=== PATIENT | female | born 1945 | race Caucasian/White ===

== ENCOUNTER 2024-06-08 23:12 | Observation (INO) | payer MEDICARE, MEDICAID, SELFPAY ==
--- NOTE | ~2024-06-08 | CT_ITS ---
CT head without contrast Indication: Altered mental status Technique: Serial scans were obtained through the brain without the administration of contrast. Dose reduction technique was used on this scan by utilizing automated exposure control and iterative recon struction technique. The dose-length product (DLP) was 529.67 mGy-cm. Findings: There is no evidence of intracranial hemorrhage, mass lesion, or acute infarct. The ventri cles and subarachnoid spaces are dilated, consistent with mild to moderate atrophy. Low attenuation regions are seen within the periventricular white matter bilaterally, likely representing changes fro m chronic microvascular ischemic disease. There is no evidence of edema, mass effect or midline shif t. The visualized paranasal sinuses and mastoid air cells are clear. Impression: No intracranial hemorrhage, mass, or acute infarct. Atrophy and chronic white matter changes, as above. Reviewed, dictated and finalized at location M. Impression: No intracranial hemorrhage, mass, or acute infarct. Atrophy and chronic white matter changes, as above.
--- NOTE | ~2024-06-08 | XR_ITS ---
XR chest 1V portable Ordering provider: Orlin Leiva MD History: 78 years Female with . Chest pain SOB . Comparison: None. FINDINGS: MEDIASTINUM: The cardiac silhouette is not enlarged. LUNGS: No effusions or pneumothorax. Calcified granuloma in the right midzone. Prominent markings in the left lower lobe laterally. OTHER: No free air under the diaphragm. Degenerative spine. IMPRESSION: Prominent markings in the left lower lobe laterally which may indicate early pneumonia. Follow-up adv ised. Reviewed, dictated and finalized at location A. IMPRESSION: Prominent markings in the left lower lobe laterally which may indicate early pn eumonia. Follow-up advised.
[2024-06-08 23:09] VITALS: BP 124/88; PULSE 94; RESP 16; O2SAT 95
[2024-06-08 23:19] VITALS: BP 112/66; BP 112/80; PULSE 64; PULSE 74; RESP 18; TEMP 36.4; O2SAT 98; O2SAT 99
--- NOTE | 2024-06-08 23:19 | ECG_ITS ---
Test Date: 2024-06-08 23:20:37 Measurements Intervals [place] Rate: 69 P: 0 CO: 0 QRS: 42 QRSD: 87 T: 21 QT: 387 QTc: 417 Interpretive Statements ATRIAL FIBRILLATION WITH ABERRANT CONDUCTION OR VENTRICULAR PREMATURE COMPLEXES POSSIBLE ANTERIOR MYOCARDIAL INFARCTION , OF INDETERMINATE AGE [30 ms Q WAVE IN V3/V4, OR R < 0.2 mV IN V4] ABNORMAL ECG No previous ECG available for comparison Electronically Signed On 06-09-2024 14:55:53 CDT by Jesse Perez M.D.
[2024-06-08] MEDS: OLANZapine 10 MG, WATER, STERILE FOR INJECTION 2.1 ML IM (23:25)
[2024-06-08 23:34] VITALS: BP 124/88; PULSE 76; RESP 18; TEMP 36.5; O2SAT 99
[2024-06-08 23:35] LABS: Basophils Percent Auto 0.5 % (0.2-1.2); Eosinophils Absolute Auto 0.1 K/mm3 (0-0.3); Eosinophils Percent Auto 1.2 % (0-4.4); Hemoglobin 11.3 g/dL (12.0-15.0); Immature Granulocyte Absolute 0.02 K/mm3 (0.00-0.031); Immature Granulocyte Percent A 0.2 % (0-0.5); Lymphocytes Absolute Auto 2.87 K/mm3 (0.9-3.2); Lymphocytes Percent Auto 35.3 % (18.3-44.2); Mean Corpuscular HGB Conc 33.2 g/dl (32-36); Mean Corpuscular Hemoglobin 33.2 pg (26-34); Mean Platelet Volume 9.7 fl (7.4-10.4); Monocytes Absolute Auto 0.8 K/mm3 (0.1-0.6); Monocytes Percent Auto 9.8 % (2.6-8.5); Neutrophils Absolute Auto 4.3 K/mm3 (1.3-6.7); Platelet Count Result 169 k/mm3 (150-375); White Blood Count 8.1 K/mm3 (4.5-10.0)
[2024-06-08 23:46] VITALS: BP 130/68; PULSE 65; RESP 16; TEMP 36.6; O2SAT 100
[2024-06-08 23:47] LABS: Alanine Aminotransferase 17 U/L (6-35); Albumin Level 3.9 g/dL (3.5-5.1); Alkaline Phosphatase 70 U/L (38-126); Anion Gap 8 mmol/L (4-12); Aspartate Amino Transferase 43 U/L (14-36); Bilirubin,Total 1.4 mg/dL (0.2-1.3); Blood Urea Nitrogen 15 mg/dL (7-17); Calcium 8.6 mg/dL (8.4-10.2); Carbon Dioxide 30 mmol/L (22-30); Chloride 100 mmol/L (98-107); Estimated CRCL calculation 60 ml/min; Estimated Glomerular Filt Rate > 60; Glucose 93 mg/dL (65-110); Lactic Acid Reflex 1.1 mmol/L (0.7-2.0); Potassium 3.9 mmol/L (3.4-5.0); Sodium 138 mmol/L (137-145)
[2024-06-08 23:53] LABS: Acetaminophen < 10 ug/mL (10-30); Ammonia < 9 umol/L (9-30); Ethanol < 10 mg/dL (<10); Salicylate < 1.0 mg/dL (2-20)
--- NOTE | 2024-06-08 23:54 | ED.CHESTPAIN ---
HPI - Chest Pain General Chief Complaint: Chest Pain Stated Complaint: halucinations, sob, chest pain Source: EMS Mode of arrival: EMS Limitations: dementia History of Present Illness HPI narrative: HPI limited by patient's baseline altered mental status This is a 78-year-old female, with history of dementia with baseline A&O x1, [facility] with complaints of chest pain, hallucinations and delirium. EMS reports that staff at her [facility] states that she has not slept for the past 3 days and has been wandering around. She reportedly had a new nurse this evening that noted complaints of shortness of breath and chest pain. EMS notes with any intervention or touch, the patient complained of pain. Fingerstick glucose 80. Vital signs within normal limits and route. Related Data Home Medications Medication Instructions Recorded Confirmed No Home Medications 06/07/24 06/07/24 Allergies Allergy/AdvReac Type Severity Reaction Status Date / Time Iodinated Contrast Media Allergy Other Verified 06/08/24 23:28 levofloxacin Allergy Other Verified 06/08/24 23:28 metronidazole Allergy Other Verified 06/08/24 23:28 Review of Systems Review of Systems: ROS unobtainable: Yes unobtainable due to mental status PMFSH Past Medical History Medical History (Updated 06/09/24 @ 03:15 by Orlin Leiva MD) Atrial fibrillation Dementia Generalized anxiety disorder Hypertension Hypocalcemia Unspecified psychosis Surgical History Surgical History (Updated 06/09/24 @ 00:01 by Orlin Leiva MD) No significant past surgical history Social History Social History Smoking status: Never smoker Alcohol intake: never Substance use: never Exam Narrative: GENERAL: Well-developed, well-nourished, mildly agitated with placement of lines and leads, though calms when left alone HEAD: Normocephalic, atraumatic. EYES: PERRLA and EOMI. ENT: Nares clear, no rhinorrhea or epistaxis. Mucous membranes moist. Oropharynx without tonsillar hypertrophy exudate or other lesions. CHEST: Clear to auscultation. No respiratory distress. No wheezes rales or rhonchi HEART: Regular rate and rhythm. No murmur heard. Normal peripheral pulses. ABDOMEN: Soft, nontender, nondistended, normal active bowel sounds. EXTREMITIES: Normal range of motion. No edema. SKIN: Warm, dry, no rash. NEURO: Alert and oriented x1. Follows some commands. Moving all 4 extremities spontaneously Course Course Emergency Course: 02:25 - STAT Rad reading of CT head demonstrates no hemorrhage, hydrocephalus, mass effect or herniation. Chest x-ray shows changes concerning for early pneumonia, CBC demonstrates mild anemia with hemoglobin of 11.3 but is otherwise unremarkable. Chemistries demonstrate total bilirubin elevation of 1.4 an AST elevation of 43 but is otherwise unremarkable. Initial troponin negative PE urinalysis not concerning for UTI. Urine drug screen pending. Salicylates, acetaminophen and alcohol levels negative. The changes concerning for pneumonia may explain the patient's chest pain and shortness of breath. I suspect her lack of sleep is contributing to her altered mental status. 03:24 - I discussed the patient with hospitalist, Dr. Shoemaker. Who accepts admission. Vital Signs Vital signs: Vital Signs Pulse Rate 94 06/08/24 23:09 Respiratory Rate 16 06/08/24 23:09 Blood Pressure 124/88 06/08/24 23:09 Pulse Oximetry 95 06/08/24 23:09 Oxygen Delivery Room Air 06/08/24 23:09 Temperature 97.4 F L 06/09/24 00:31 Pulse Rate 72 06/09/24 00:31 Respiratory Rate 14 06/09/24 00:31 Blood Pressure 122/84 06/09/24 00:31 Pulse Oximetry 100 06/09/24 00:31 Oxygen Delivery Room Air 06/08/24 23:09 MDM - Chest Pain MDM Narrative Medical decision making narrative: Plan: Labs, imaging, chemical sedation, EKG, troponin, reassess
[2024-06-08 23:58] VITALS: BP 128/60; PULSE 71; RESP 16; TEMP 36.4; O2SAT 99
[2024-06-09] VITALS (10 sets, daily range): BP systolic 106–156; BP diastolic 52–84; PULSE 59–79; RESP 14–20; TEMP 36.1–36.4; O2SAT 98–100; BMI 31.0
[2024-06-09] LABS: Troponin I < 0.012 ng/mL (0.000-0.034)
[2024-06-09] MEDS: QUEtiapine FUMARATE 12.5 MG TABLET PO (00:45)
--- NOTE | 2024-06-09 00:59 | PC.NURSE ---
Patient refusing Seroquel. EDP aware; different medication ordered for agitation
[2024-06-09] MEDS: LORazepam INJ (*CRX) 2 MG/ML VIAL 1 MG IM (01:01)
[2024-06-09] MEDS: DOXYCYCLINE 100 MG/NS 100 ML 100 MG/100 ML BAG IVPB (02:00)
[2024-06-09 02:23] LABS: Add Urine Microscopic? NO; Appearance Urine Clear (Clear); Bilirubin Urine Negative (Negative); Blood Urine Negative (Negative); Color Urine Yellow (Yellow); Glucose Urine UA Negative (Negative); Ketones Urine Negative (Negative); Leukocyte Esterase Ur Negative LEU/UL (Negative); Nitrate Urine Negative (Negative); Protein Urine Negative (Negative); Specific Grav Ur 1.007 (1.001-1.035); pH Urine 6.5 (5.0-9.0)
[2024-06-09 02:38] LABS: Amphetamine Screen Urine Negative (Negative); Barbiturate Screen Urine Negative (Negative); Benzodiazepines Screen Urine Negative (Negative); Cannabinoid Screen Urine Negative (Negative); Cocaine Screen Urine Negative (Negative); Methadone Screen Urine Negative (Negative); Opiate Screen Urine Negative (Negative); Phencyclidine Screen Urine Negative (Negative)
[2024-06-09 03:05] LABS: Troponin I < 0.012 ng/mL (0.000-0.034)
--- NOTE | 2024-06-09 06:20 | ADMGEN ---
This patient, Brooke Ford, was admitted to [facility] Surg Room 333-01. Patient/family oriented to hospital policies and general routines including ID bracelet, bed and alarms, visiting hours, pain management, procedures, bathroom and other care routines, personal items, smoking policy, room service/diet, and visiting hours. Information on how to activate the Rapid Response Team has been discussed. Patient/Family are encouraged to report perceived risks to care and to ask questions if they do not understand what they are told or what they should do.
--- NOTE | 2024-06-09 06:26 | PC.NURSE ---
Patient admitted to unit @0611. She will not answer admission questions and agitated.
[2024-06-09 11:18] LABS: Hematocrit 38.2 % (37.0-47.0); Hemoglobin 12.6 g/dL (12.0-15.0); Mean Corpuscular Hemoglobin 33.4 pg (26-34); Mean Corpuscular Volume 101.3 fl (80-100); Mean Platelet Volume 9.5 fl (7.4-10.4); Platelet Count Result 182 k/mm3 (150-375); Red Blood Count 3.77 M/mm3 (4.2-5.4); Red Cell Distribution Width 14.1 % (11.5-14.5); White Blood Count 7.3 K/mm3 (4.5-10.0)
--- NOTE | 2024-06-09 13:10 | PM.IMHP ---
H&P: HPI History of Present Illness Date/Time: 06/09/24 10:10 Chief Complaint: Chest discomfort Narrative: Patient has a history of dementia and is very confused, only oriented to self and unable to provide any information regarding her presentation. Patient was brought in to the ER from the [place] that she resides with reports of chest discomfort. From ER report, the patient was complaining of shortness of breath and chest discomfort at the [facility]. Patient also complained of pain to the EMS, with any touch. During my exam patient is confused, only oriented to self, with reponses unrelated to questions asked. Patient has been ambulating on the hallway since this AM per nursing staff. Significant ER Labs: WBC 6.7, H/H 12.6/38.2, Plat 182, Troponin 0.012, Toxicology screen negative, Covid negative, chemistry unremarkable. Review of Systems Review of Systems: All systems reviewed & are unremarkable except as noted in HPI and below PMFSH Past Medical History Medical History (Updated 06/09/24 @ 13:57 by Wendy Moraes NP) Atrial fibrillation Dementia Generalized anxiety disorder Hypertension Hypocalcemia Unspecified psychosis Surgical History Surgical History No significant past surgical history Social History Social History Smoking status: Unknown if ever smoked Second hand tobacco smoke exposure: No Alcohol intake: never Substance use: never Spiritual care concerns: No Meds Home Medications and Allergies Home Medications Medication Instructions Recorded Confirmed Type acetaminophen 500 mg tablet 500 mg PO BID 06/09/24 06/09/24 History apixaban 5 mg tablet (Eliquis) 5 mg PO BID 06/09/24 06/09/24 History aripiprazole 5 mg tablet 5 mg PO DAILY 06/09/24 06/09/24 History divalproex 250 mg tablet,delayed 250 mg PO BID 06/09/24 06/09/24 History release famotidine 20 mg tablet 20 mg PO DAILY 06/09/24 06/09/24 History lisinopril 5 mg tablet 5 mg PO DAILY 06/09/24 06/09/24 History metoprolol tartrate 25 mg tablet 25 mg PO BID 06/09/24 06/09/24 History quetiapine 25 mg tablet 25 mg PO BID 06/09/24 06/09/24 History Allergies Allergy/AdvReac Type Severity Reaction Status Date / Time Iodinated Contrast Media Allergy Other Verified 06/08/24 23:28 levofloxacin Allergy Other Verified 06/08/24 23:28 metronidazole Allergy Other Verified 06/08/24 23:28 Vital Signs Vital Signs - 24 hr 06/08/24 23:09 06/08/24 23:19 06/08/24 23:19 Temperature 97.6 F Pulse Rate 94 74 64 Respiratory Rate 16 18 18 Blood Pressure 124/88 112/80 112/66 Pulse Oximetry 95 98 99 Oxygen Delivery Room Air 06/09/24 00:11 06/08/24 23:34 06/08/24 23:46 Temperature 97.6 F 97.7 F 97.8 F Pulse Rate 71 76 65 Respiratory Rate 16 18 16 Blood Pressure 114/78 124/88 130/68 Pulse Oximetry 99 99 100 Oxygen Delivery 06/08/24 23:58 06/09/24 00:31 06/09/24 03:28 Temperature 97.6 F 97.4 F L Pulse Rate 71 72 62 Respiratory Rate 16 14 16 Blood Pressure 128/60 122/84 108/52 L Pulse Oximetry 99 100 98 Oxygen Delivery 06/09/24 01:16 06/09/24 02:15 06/09/24 02:16 Temperature 97.6 F 97.4 F L 97.4 F L Pulse Rate 62 63 59 L Respiratory Rate 16 16 16 Blood Pressure 128/62 106/56 L 124/64 Pulse Oximetry 99 98 98 Oxygen Delivery 06/09/24 03:16 06/09/24 04:16 06/09/24 05:27 Temperature 97.4 F L 97.6 F Pulse Rate 65 61 59 L Respiratory Rate 14 16 16 Blood Pressure 108/52 L 136/52 L 134/52 L Pulse Oximetry 99 99 98 Oxygen Delivery 06/09/24 06:15 Temperature 97.0 F L Pulse Rate 79 Respiratory Rate 20 Blood Pressure 156/79 H Pulse Oximetry 100 Oxygen Delivery Exam Narrative: General: Pleasantly confused, only oriented to self. HEENT: Atraumatic, PERRL, EOMI, moist mucus membranes. NECK: Supple. Pulmonary: Lungs clear bilaterally. Cardiovascular: RRR, S1S2, no edema. Gastrointestinal: Soft,
[2024-06-09 13:26] LABS: SARS-CoV-2 RNA PCR Negative (Negative)
--- NOTE | 2024-06-09 14:02 | PM.DS ---
DS: Admitting Diagnosis Discharge Date 06/09/2024 Admitting Diagnosis Chest discomfort. DS: Discharge Diagnosis Discharge Diagnosis (1) Pneumonia: Qualifiers: Laterality: left Lung location: lower lobe of lung Pneumonia type: due to unspecified organism Qualified Code(s): J18.9 - Pneumonia, unspecified organism Code(s): J18.9 - Pneumonia, unspecified organism Status: Acute Assessment and Plan: - CXR suggestive of early PNA. - WBC's wnl. - Patient started on Ceftriaxone and doxycycline in ER and converted to Augmentin prior to discharge. - No coughs or SOB episodes inpatient. - Patient medically stable for discharge to [place]. (2) Altered mental status: Qualifiers: Altered mental status type: delirium Qualified Code(s): R41.0 - Disorientation, unspecified Code(s): R41.82 - Altered mental status, unspecified Status: Acute Assessment and Plan: - Possibly related to dementia and worsened with possible infection. - UA negative. - Continue safety monitoring and assist with care. (3) Atrial fibrillation: Code(s): I48.91 - Unspecified atrial fibrillation Status: Chronic Assessment and Plan: - Stable inpatient. - Continue Apixaban and Metoprolol. (4) Essential hypertension: Code(s): I10 - Essential (primary) hypertension Status: Acute Assessment and Plan: - Stable. - Continue Lisinopril and metoprolol. (5) Generalized anxiety disorder: Code(s): F41.1 - Generalized anxiety disorder Status: Acute Assessment and Plan: - Continue Continue quetiapine and aripiprazole. Plan Code Status: DNR. DVT PPx: Apixaban. Diet: Heart Healthy. DS: Summary Hospital Course Reason for hospitalization: Chest discomfort. Hospital Course: Patient was admitted with concerns for chest discomfort. Patient had fairly unremarkable labs, including normal WBC and fairly normal chemistry. Her UA was also negative with Covid pending prior to discharge but patient with no symptoms, with her vital signs staying wnl during her hospitalization. Patient's CXR was suggestive of early pneumonia and she was treated with Ceftriaxone and Doxycycline that was changed to Augmentin prior to her discharge. Her CT head was negative for acute, only showing atrophy and chronic white matter changes. Her toxicology screen was also negative. Patient appears to be back to her baseline with baseline confusion related to her dementia. Patient is medically stable for discharge back to her NH. Status at Discharge Functional status at discharge: uses cane/walker Overall status at discharge: patient is progressing back to baseline Time Spent with Patient Time attestation: Total time spent providing and/or coordinating discharge services: Time spent: Greater than 30 minutes Exam Narrative: General: Pleasantly confused, only oriented to self. HEENT: Atraumatic, PERRL, EOMI, moist mucus membranes. NECK: Supple. Pulmonary: Lungs clear bilaterally. Cardiovascular: RRR, S1S2, no edema. Gastrointestinal: Soft, non-tender, +ve bowel sounds all quadrants. Skin: Warm and dry, Intact with no lesions noted on exam Extremities: No cyanosis, clubbing or edema. Radial and pedal pulses 2+. Neurological: Alert and oriented X1 (self), Cranial nerves II-XII grossly intact. No focal deficits. Psychiatric: Pleasantly confused. DS: Data Data Completed and Pending Labs on day of discharge: Labs from last 24 hours 06/09/24 06/09/24 06/09/24 12:45 11:13 02:26 WBC 7.3 RBC 3.77 L Hgb 12.6 Hct 38.2 MCV 101.3 H MCH 33.4 MCHC 33.0 RDW 14.1 Plt Count 182 MPV 9.5 Immature Gran % (Auto) Neut % (Auto) Lymph % (Auto) [place] % (Auto) Eos % (Auto) Baso % (Auto) Lymph # (Auto) [place] # (Auto) Eos # (Auto) Baso # (Auto) Abs Immat Gran (auto) Absolute Neuts (auto) Absolute Nucleated RBC Nucleated RBC %
[2024-06-09 15:15] LABS: Procalcitonin 0.1 ng/mL
== END 2024-06-09 16:30 ==
LOC: ANHED 06-09 03:15 → ANH3MEDSUR 06-09 06:47
PROVIDERS: Nurse Practitioner Adult Health; Admitting Provider Internal Medicine; Emergency Provider Preventive Medicine Aerospace Medicine; Visit Provider Internal Medicine
DX: J18.9 Pneumonia, unspecified organism (principal); R41.0 Disorientation, unspecified; R07.9 Chest pain, unspecified; I48.91 Unspecified atrial fibrillation; F03.90 Unspecified dementia, unspecified severity, without behavioral disturbance, psychotic disturbance, mood disturbance, and anxiety; I10 Essential (primary) hypertension; F41.1 Generalized anxiety disorder; Z79.01 Long term (current) use of anticoagulants; Z66 Do not resuscitate; Z20.822 Contact with and (suspected) exposure to COVID-19
CPT/HCPCS: 36415; 70450; 71045; 80053; 80307; 81003; 82140; 83605; 84145; 84443; 84484; 85025; 85027; 87635; 93005; 96365; 96367; 96372; 99285; A9270; G0378; G0379; J0696; J2060; J2359

== ENCOUNTER 2025-03-20 13:46 | Observation (INO) | payer MEDICARE, SELFPAY ==
[2025-03-20] VITALS (10 sets, daily range): BP systolic 90–152; BP diastolic 55–72; PULSE 73–86; RESP 12–21; TEMP 36.2–36.3; O2SAT 93–97; BMI 27.8
--- NOTE | ~2025-03-20 | CT_ITS ---
EXAMINATION: CT abdomen pelvis wo con DATE: 03/20/2025 18:22 INDICATION: Nausea vomiting diarrhea TECHNIQUE: Computed tomography (CT) of the abdomen and pelvis was performed without intravenous contr ast. Automated exposure control and iterative reconstruction technique were employed. The dose-length product was 452.81 mGy-cm. COMPARISON: None. FINDINGS: Exam limited by beam hardening from arm down positioning and motion artifact. Lower thorax: Aortic, mitral, and coronary artery calcifications. Cardiomegaly. Descending thoracic a ortic ectasia. Liver: Normal. Biliary/Gallbladder: Gallbladder is absent. No inflammatory change. Distended common bile duct, proba lori secondary to cholecystectomy. Pancreas: Moderate atrophy. Spleen: Normal. Adrenals:No mass. Kidneys: No suspicious mass, obstructing stone, or hydronephrosis. Bilateral simple renal cysts. GI tract: No small or large bowel dilation. Appendix not confidently visualized. Mesentery/Peritoneum: No ascites, mass, or free air. Retroperitoneum: No mass. Atherosclerotic calcifications of intra-abdominal arterial vessels. 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 Uterus and bilateral ovaries not confidently visualized. Soft Tissues: Soft tissues and body wall unremarkable. Bones: No acute osseous finding. IMPRESSION: Bladder wall thickening, as can be seen with cystitis. Correlate with urinalysis. Reviewed, dictated and finalized at location K. IMPRESSION: Bladder wall thickening, as can be seen with cystitis. Correlate with urinalysi s.
[2025-03-20 14:42] LABS: Basophils Absolute Auto 0.1 K/mm3 (0.0-0.1); Basophils Percent Auto 0.5 % (0.2-1.2); Eosinophils Percent Auto 0.1 % (0-4.4); Hematocrit 38.8 % (37.0-47.0); Hemoglobin 12.7 g/dL (12.0-15.0); Immature Granulocyte Absolute 0.09 K/mm3 (0.00-0.031); Immature Granulocyte Percent A 0.5 % (0-0.5); Lymphocytes Absolute Auto 0.75 K/mm3 (0.9-3.2); Lymphocytes Percent Auto 4.2 % (18.3-44.2); Mean Corpuscular HGB Conc 32.7 g/dl (32-36); Mean Corpuscular Hemoglobin 32.6 pg (26-34); Mean Corpuscular Volume 99.5 fl (80-100); Mean Platelet Volume 9.8 fl (7.4-10.4); Monocytes Absolute Auto 1.8 K/mm3 (0.1-0.6); Monocytes Percent Auto 9.9 % (2.6-8.5); Neutrophils Percent Auto 84.8 % (45.5-73.1); Platelet Count Result 218 k/mm3 (150-375); Red Cell Distribution Width 13.5 % (11.5-14.5); White Blood Count 17.7 K/mm3 (4.5-10.0)
[2025-03-20 14:52] LABS: Alanine Aminotransferase 16 U/L (6-35); Albumin Level 4.1 g/dL (3.5-5.1); Alkaline Phosphatase 83 U/L (38-126); Anion Gap 11 mmol/L (4-12); Aspartate Amino Transferase 30 U/L (14-36); Bilirubin,Total 1.3 mg/dL (0.2-1.3); Blood Urea Nitrogen 22 mg/dL (7-17); Calcium 8.9 mg/dL (8.4-10.2); Carbon Dioxide 26 mmol/L (22-30); Chloride 102 mmol/L (98-107); Estimated Glomerular Filt Rate 56; Glucose 149 mg/dL (65-110); Lipase 71 U/L (23-300); Potassium 4.5 mmol/L (3.4-5.0); Sodium 139 mmol/L (137-145)
[2025-03-20 14:57] LABS: Add Urine Microscopic? YES; Appearance Urine Cloudy (Clear); Bacteria Urine 4+ /hpf; Bilirubin Urine 1+ (Negative); Blood Urine Negative (Negative); Color Urine Dark Yellow (Yellow); Glucose Urine UA Negative (Negative); Ketones Urine Trace mg/dL (Negative); Leukocyte Esterase Ur 2+ LEU/UL (Negative); Need Manual Microscopic Reviewed; Nitrate Urine Positive (Negative); Non Pathogenic Casts >20; Protein Urine 1+ mg/dL (Negative); Specific Grav Ur 1.014 (1.001-1.035); Squamous Epithelial Cell Urine None Seen /hpf (Few); WBC Urine 21-50 /hpf (0-3)
[2025-03-20 15:00] LABS: Mucus Urine Few /lpf
--- NOTE | 2025-03-20 17:48 | ED.GENADULT ---
HPI - General Adult General Chief complaint: Nausea/Vomiting/Diarrhea Stated complaint: N/V/D Time Seen by Provider: 03/20/25 16:14 History of Present Illness HPI narrative: 71-year-old female present to the emergency department for evaluation for nausea vomiting diarrhea. Patient had a bowel movement at her care facility and after her shower they felt that her pulse ox was low. EMS was called and upon arrival to the emergency department patients hands were we warmed and patient does no longer hypoxic. Has had multiple bowel movements in the emergency department. Patient does have a significant urinary tract infection. Related Data Home Medications ?Medication ?Instructions ?Recorded ?Confirmed ?Last Taken ?Type acetaminophen 500 mg tablet 500 mg PO BID 06/09/24 10/11/24 Unknown History apixaban 5 mg tablet (Eliquis) 5 mg PO BID 06/09/24 10/11/24 Unknown History aripiprazole 5 mg tablet 5 mg PO DAILY 06/09/24 10/11/24 Unknown History divalproex 250 mg tablet,delayed 250 mg PO BID 06/09/24 10/11/24 Unknown History release famotidine 20 mg tablet 20 mg PO DAILY 06/09/24 10/11/24 Unknown History lisinopril 5 mg tablet 5 mg PO DAILY 06/09/24 10/11/24 Unknown History metoprolol tartrate 25 mg tablet 25 mg PO BID 06/09/24 10/11/24 Unknown History quetiapine 25 mg tablet 25 mg PO BID 06/09/24 10/11/24 Unknown History Allergies Allergy/AdvReac Type Severity Reaction Status Date / Time Iodinated Contrast Media Allergy Other Verified 03/20/25 14:12 levofloxacin Allergy Other Verified 03/20/25 14:12 metronidazole Allergy Other Verified 03/20/25 14:12 Review of Systems Review of Systems: All systems reviewed & are unremarkable except as noted in HPI and below PMFSH Past Medical History Medical History (Updated 03/20/25 @ 20:00 by Nik Fortune MD) Unspecified psychosis Hypocalcemia Hypertension Atrial fibrillation Generalized anxiety disorder Dementia Surgical History Surgical History No significant past surgical history Social History Social History Smoking status: Unknown if ever smoked Second hand tobacco smoke exposure: No Alcohol intake: never Substance use: never Spiritual care concerns: No Exam Narrative: APPEARANCE: Well appearing, but agitated HEAD: normocephalic, atraumatic. EYES: PERRLA/EOMI, conjunctivae clear. NOSE: Normal no drainage EARS:TMS clear with good light reflex. THROAT: Pharynx clear, no exudate. NECK: Supple. No adenopathy, no masses. RESPIRATORY: Airway patent, respirations nonlabored. Clear to auscultation bilaterally, no rales, rhonchi, wheezing. CARDIOVASCULAR: Regular rate and rhythm without murmurs rubs or gallops. ABDOMINAL: Soft, nontender, nondistended, normal bowel sounds MUSCULOSKELETAL: Moves all extremities. Strength/ROM intact, No edema, No calf tenderness. NEURO: Alert. Cranial nerves II through XII intact. Good gait. Good coordination SKIN: Warm, dry. Normal Color Course Vital Signs Vital signs: Vital Signs Temperature 97.4 F L 03/20/25 14:02 Pulse Rate 86 03/20/25 14:02 Respiratory Rate 19 03/20/25 14:02 Blood Pressure 117/72 03/20/25 14:02 Pulse Oximetry 97 03/20/25 14:02 Oxygen Delivery Room Air 03/20/25 14:02 Temperature 97.4 F L 03/20/25 14:02 Pulse Rate 79 03/20/25 17:55 Respiratory Rate 13 03/20/25 17:55 Blood Pressure 123/59 L 03/20/25 17:55 Pulse Oximetry 95 03/20/25 17:55 Oxygen Delivery Room Air 03/20/25 14:02 Medical Decision Making [facility] Narrative Medical decision making narrative: 79-year-old female present to the emergency department for evaluation for nausea vomiting diarrhea. Patient is currently afebrile but does have a white count of 17.7 hemoglobin of 12.7. Patient has no acute abnormalities on her CMP UA is significant for infection. No previous urine cultures show significant resistance. Patient was started on Rocephin. C diff was ordered. Case was discussed with hospitalist patient was accepted for admission. Differential Diagnosis Differential Diagnosis: COVID, RSV, influenza, urinary tract infection, colitis, diverticulitis, C diff Vital Signs Vital Signs: Vital Signs Temperature 97.4 F L 03/20/25 14:02 Pulse Rate 86 03/20/25 14:02 Respiratory Rate 19 03/20/25 14:02 Blood Pressure 117/72 03/20/25 14:02 Pulse Oximetry 97 03/20/25 14:02 Oxygen Delivery Room Air 03/20/25 14:02 Temperature 97.4 F L 03/20/25 14:02 Pulse Rate 79 03/20/25 17:55 Respiratory Rate 13 03/20/25 17:55 Blood Pressure 123/59 L 03/20/25 17:55 Pulse Oximetry 95 03/20/25 17:55 Oxygen Delivery Room Air 03/20/25 14:02 Lab Data Lab results reviewed: Yes I reviewed the patient's lab results. 03/20/25 14:20 03/20/25 14:20 Labs: Lab Results 03/20/25 03/20/25 03/20/25 Range/Units 14:20 14:30 17:56 WBC 17.7 H (4.5-10.0) K/mm3 RBC 3.90 L (4.2-5.4) M/mm3 Hgb 12.7 (12.0-15.0) g/dL Hct 38.8 (37.0-47.0) % MCV 99.5 (80-100) fl MCH 32.6 (26-34) pg MCHC 32.7 (32-36) g/dl RDW 13.5 (11.5-14.5) % Plt Count 218 (150-375) k/mm3 MPV 9.8 (7.4-10.4) fl Immature Gran % (Auto) 0.5 (0-0.5) % Neut % (Auto) 84.8 H (45.5-73.1) % Lymph % (Auto) 4.2 L (18.3-44.2) % [place] % (Auto) 9.9 H (2.6-8.5) % Eos % (Auto) 0.1 (0-4.4) % Baso % (Auto) 0.5 (0.2-1.2) % Lymph # (Auto) 0.75 L (0.9-3.2) K/mm3 [place] # (Auto) 1.8 H (0.1-0.6) K/mm3 Eos # (Auto) 0.0 (0-0.3) K/mm3 Baso # (Auto) 0.1 (0.0-0.1) K/mm3 Abs Immat Gran (auto) 0.09 H (0.00-0.031) K/mm3 Absolute Neuts (auto) 15.0 H (1.3-6.7) K/mm3 Absolute Nucleated RBC 0.000 (0.0-0.012) K/mm3 Nucleated RBC % 0.0 (0.0-0.2) % Sodium 139 (137-145) mmol/L Potassium 4.5 (3.4-5.0) mmol/L Chloride 102 (98-107) mmol/L Carbon Dioxide 26 (22-30) mmol/L Anion Gap 11 (4-12) mmol/L BUN 22 H (7-17) mg/dL Creatinine 0.97 (0.7-1.0) mg/dL Estim Creat Clear Calc Not Reportable Estimated GFR 56 L (59 - ) Glucose 149 H (65-110) mg/dL Calcium 8.9 (8.4-10.2) mg/dL Total Bilirubin 1.3 (0.2-1.3) mg/dL AST 30 (14-36) U/L ALT 16 (6-35) U/L Alkaline Phosphatase 83 (38-126) U/L Total Protein 8.0 (6.3-8.2) g/dL Albumin 4.1 (3.5-5.1) g/dL Lipase 71 (23-300) U/L Urine Color Dark yellow (Yellow) Urine Appearance Cloudy H (Clear) Urine pH 5.0 (5.0-9.0) Ur Specific [place] 1.014 (1.001-1.035) Urine Protein 1+ H (Negative) mg/dL Urine Glucose (UA) Negative (Negative) mg/dL Urine Ketones Trace H (Negative) mg/dL Ur Blood (Man) Negative (Negative) Urine Nitrate Positive H (Negative) Urine Bilirubin 1+ H (Negative) Urine Urobilinogen 2.0 H (<2.0) mg/dL Add Ur Microanalysis Reviewed Leukocyte Esterase Rfl 2+ H (Negative) MARCELA/UL Urine RBC 3-5 H (0-2) /hpf Urine WBC 21-50 H (0-3) /hpf Ur Squamous Epith Cells None seen (Few) /hpf Urine Bacteria 4+ H /hpf Urine Casts >20 Granular Casts 1-2 H (None) /lpf Urine Mucus Few H /lpf C. difficile (PCR) Negative (NEGATIVE) Imaging Data Radiologist's impression: Impressions Abdomen/Pelvis CT 03/20/25 18:52 IMPRESSION: Bladder wall thickening, as can be seen with cystitis. Correlate with urinalysis. Discharge Plan Discharge Clinical Impression: Nausea vomiting and diarrhea, Urinary tract infection Patient Disposition: Still a Patient Condition: Stable Patient Language: Serbian Prescriptions: No Action quetiapine 25 mg Tablet 25 mg PO BID divalproex 250 mg tablet,delayed release (DR/EC) 250 mg PO BID acetaminophen 500 mg tablet 500 mg PO BID famotidine 20 mg tablet 20 mg PO DAILY lisinopril 5 mg tablet 5 mg PO DAILY aripiprazole 5 mg Tablet 5 mg PO DAILY metoprolol tartrate 25 mg tablet 25 mg PO BID Eliquis 5 mg tablet 5 mg PO BID Follow-up/Referrals: UNKNOWN,DOCTOR [Primary Care Provider] -
[2025-03-20] MEDS: LACTATED RINGERS 1,000 ML 999 ML IV CONT (18:37)
[2025-03-20] MEDS: LORazepam INJ (*CRX) 2 MG/ML VIAL 0.5 MG IV PUSH (18:39)
--- NOTE | 2025-03-20 18:51 | PC.NURSE ---
pt gets transferred to [facility] on [facility] via [facility] ems on Bi[facility], with belongings, and chart.
[2025-03-20 18:53] LABS: Toxigenic C. Diff NEGATIVE (NEGATIVE)
--- NOTE | 2025-03-20 18:55 | PC.NURSE ---
pt begins to get agitated and anxious attempting to get out of bed. notified ED charge aide and requested bed assignment closer to nurses station. notified provider who states they can order medication to assist pt in feeling more comfortable. pt axo0 at baseline and does not comprehend instructions to stay in bed for safety. bed alarm is under patient, bed low and locked, bed rails up for safety. comfort measures addressed and water offered to patient.
[2025-03-20] MEDS: QUEtiapine FUMARATE 25 MG TABLET PO (19:08)
--- NOTE | 2025-03-20 21:07 | PC.NURSE ---
Patricia RN and Shahrzad RN changed pt depend and bed sheets at this time. Pt placed back on bed alarm and monitor.
--- NOTE | 2025-03-20 21:55 | ADMGEN ---
This patient, Brooke Ford, was admitted to Medical Room 246-01. Patient/family oriented to hospital policies and general routines including ID bracelet, bed and alarms, visiting hours, pain management, procedures, bathroom and other care routines, personal items, smoking policy, room service/diet, and visiting hours. Information on how to activate the Rapid Response Team has been discussed. Patient/Family are encouraged to report perceived risks to care and to ask questions if they do not understand what they are told or what they should do.
--- NOTE | 2025-03-20 22:03 | PC.NURSE ---
ATTEMPTED TO CALL PT TIGIST LYONS TO DO PT ADMISSION. PT IS DISORIENTED AT BASELINE AND UNABLE TO ANSWER QUESTIONS. NO ANSWER VOICEMAIL LEFT. ALSO ATTEMPTED TO CALL PT SPOUSE WESLEY BUT THE PHONE NUMBER WENT STRAIGHT TO VOICEMAIL. PT FROM [facility] BUT DID NOT COME UP FROM THE EMERGENCY DEP WITH ANY PAPERWORK.
--- NOTE | 2025-03-20 22:28 | PC.NURSE ---
UNABLE TO REACH FAMILY TO COMPLETE ADMISSION. CALLED [facility] WHERE PT IS A RESIDENT. NURSE FAXING PT PAPERWORK
--- NOTE | 2025-03-20 23:10 | PC.NURSE ---
ADMISSION COMPLETED WITH LONG-TERM RECORDS FAXED FROM FACILITY
[2025-03-21] MEDS: LACTATED RINGERS 1,000 ML 75 ML IV CONT (00:25)
[2025-03-21 04:14] VITALS: BP 115/64; PULSE 87; RESP 18; TEMP 36.6; O2SAT 99
[2025-03-21 05:01] LABS: Basophils Absolute Auto 0.1 K/mm3 (0.0-0.1); Basophils Percent Auto 0.3 % (0.2-1.2); Eosinophils Percent Auto 0.1 % (0-4.4); Hematocrit 33.1 % (37.0-47.0); Hemoglobin 10.9 g/dL (12.0-15.0); Immature Granulocyte Absolute 0.06 K/mm3 (0.00-0.031); Immature Granulocyte Percent A 0.4 % (0-0.5); Lymphocytes Absolute Auto 2.28 K/mm3 (0.9-3.2); Lymphocytes Percent Auto 15.3 % (18.3-44.2); Mean Corpuscular HGB Conc 32.9 g/dl (32-36); Mean Corpuscular Hemoglobin 32.4 pg (26-34); Mean Corpuscular Volume 98.5 fl (80-100); Mean Platelet Volume 9.7 fl (7.4-10.4); Monocytes Absolute Auto 1.8 K/mm3 (0.1-0.6); Monocytes Percent Auto 11.8 % (2.6-8.5); Neutrophils Absolute Auto 10.8 K/mm3 (1.3-6.7); Neutrophils Percent Auto 72.1 % (45.5-73.1); Platelet Count Result 174 k/mm3 (150-375); Red Blood Count 3.36 M/mm3 (4.2-5.4); Red Cell Distribution Width 13.5 % (11.5-14.5)
[2025-03-21 05:17] LABS: Anion Gap 5 mmol/L (4-12); Blood Urea Nitrogen 22 mg/dL (7-17); Calcium 8.6 mg/dL (8.4-10.2); Carbon Dioxide 28 mmol/L (22-30); Chloride 105 mmol/L (98-107); Estimated CRCL calculation 44 ml/min; Estimated Glomerular Filt Rate > 60; Glucose 98 mg/dL (65-110); Potassium 3.7 mmol/L (3.4-5.0); Sodium 138 mmol/L (137-145)
--- NOTE | 2025-03-21 07:38 | P.HP_ITS ---
H&P: HPI History of Present Illness Date/Time: 03/21/25 07:38 Chief Complaint: nausea/vomiting Narrative: The patient is a 79-year-old female with a past medical history of dementia with baseline of A&Ox1, generalized anxiety disorder, atrial fibrillation who presents to the hospital for nausea, vomiting, and diarrhea. Patient coming from long-term. Patient was having a bowel movement and was discovered to have low pulse ox. AMS was called and upon arrival to ED, the patient was found to have adequate O2 saturation. She is alert and oriented to self only, which is patient's baseline. Urinalysis was performed which showed evidence of urinary tract infection. Will admit for IV antibiotics and management of nausea/vomiting/diarrhea. In ED: 115/64, 99% on RA, 88HR, 18 RR WBC 17.7, RBC 3.9, HGB 12.7, HCT 38.8, BUN 22, estimated GFR 56, CMP otherwise unremarkable. UA: Cloudy, 1+ protein, trace ketones, positive nitrate, 1+ bilirubin, 2.0 urobilinogen, 2+ leukocyte esterase, 3-5 RBC, 21-50 WBC 4 +bacteria. Urine culture obtained, pending at this time Stool collected, negative for C diff, Shiga Toxins, Campylobacter Abdomen/pelvis CT: Bladder wall thickening, as can be seen with cystitis. Correlate with urinalysis. Review of Systems Review of Systems: All systems reviewed & are unremarkable except as noted in HPI and below PMFSH Past Medical History Medical History (Updated 03/20/25 @ 20:00 by Nik Fortune MD) Unspecified psychosis Hypocalcemia Hypertension Atrial fibrillation Generalized anxiety disorder Dementia Surgical History Surgical History No significant past surgical history Social History Social History Smoking status: Unknown if ever smoked Second hand tobacco smoke exposure: No Alcohol intake: never Substance use: never Spiritual care concerns: No Meds Home Medications and Allergies Home Medications ?Medication ?Instructions ?Recorded ?Confirmed ?Type acetaminophen 500 mg tablet 500 mg PO BID 06/09/24 03/20/25 History apixaban 5 mg tablet (Eliquis) 5 mg PO BID 06/09/24 03/20/25 History divalproex 250 mg tablet,delayed 250 mg PO BID 06/09/24 03/20/25 History release famotidine 20 mg tablet 20 mg PO DAILY 06/09/24 03/20/25 History lisinopril 5 mg tablet 5 mg PO DAILY 06/09/24 03/20/25 History metoprolol tartrate 25 mg tablet 25 mg PO BID 06/09/24 03/20/25 History cholecalciferol (vitamin D3) 1,250 1,250 mcg PO WEEKLY 03/20/25 03/20/25 History mcg (50,000 unit) capsule divalproex 125 mg tablet,delayed 125 mg PO HS 03/20/25 03/20/25 History release fluoxetine 20 mg/5 mL (4 mg/mL) 4 mg PO DAILY 03/20/25 03/20/25 History oral solution hydroxyzine HCl 10 mg/5 mL oral 10 mg PO BID 03/20/25 03/20/25 History solution memantine 5 mg tablet 5 mg PO BID 03/20/25 03/20/25 History nifedipine 30 mg tablet,extended 30 mg PO BID 03/20/25 03/20/25 History release 24 hr suvorexant 10 mg tablet (Belsomra) 10 mg PO HS 03/20/25 03/20/25 History tizanidine 4 mg tablet 4 mg PO BID PRN muscle spasticity 03/20/25 03/20/25 History Allergies Allergy/AdvReac Type Severity Reaction Status Date / Time Iodinated Contrast Media Allergy Other Verified 03/20/25 14:12 levofloxacin Allergy Other Verified 03/20/25 14:12 metronidazole Allergy Other Verified 03/20/25 14:12 Vital Signs Vital Signs - 24 hr 03/20/25 14:02 03/20/25 14:35 03/20/25 15:19 Temperature 97.4 F L Pulse Rate 86 81 85 Respiratory Rate 19 17 14 Blood Pressure 117/72 130/70 Pulse Oximetry 97 97 97 Oxygen Delivery Room Air 03/20/25 15:31 03/20/25 16:02 03/20/25 16:31 Temperature Pulse Rate 74 77 73 Respiratory Rate 14 21 H 19 Blood Pressure 131/68 110/61 117/59 L Pulse Oximetry 96 Oxygen Delivery 03/20/25 17:01 03/20/25 17:55 03/20/25 21:07 Temperature Pulse Rate 75 79 75 Respiratory Rate 12 13 15 Blood Pressure 90/55 L 123/59 L 115/67 Pulse Oximetry 95 95 Oxygen Delivery 03/20/25 21:56 03/20/25 22:00 03/21/25 04:14 Temperature 97.2 F L 97.9 F Pulse Rate 81 87 Respiratory Rate 18 18 Blood Pressure 152/70 H 115/64 Pulse Oximetry 93 99 Oxygen Delivery Room Air Exam Narrative: Gen - Chronically ill appearing female in no acute respiratory distress who is nontoxic-appearing lying semi recumbent in bed HEENT - normocephalic. Atraumatic. Pupils equal round and reactive. Extraocular motions intact. Sclera clear and anicteric. Oropharynx was clear. Dry mucous membranes. Tongue was midline. No facial asymmetry. Neck - neck was supple. No dominant adenopathy, thyromegaly or masses. Chest - lungs are clear to auscultation bilaterally. No wheezes or crackles. CV - heart was regular rate and rhythm. S1-S2. No murmurs gallops or rubs. Abd - abdomen was soft. Nontender. Nondistended. Positive bowel sounds. Ext - no clubbing, cyanosis or edema. 2+ DP pulses bilaterally. Neuro - patient is alert and oriented x1. Cranial nerves 2-12 are intact. Speech is clear. Psych - normal mood and affect. Patient is pleasant and cooperative. Skin - warm and dry. No rashes noted. H&P: Results Labs Labs: Short CBC 03/20/25 03/21/25 Range/Units 14:20 04:43 WBC 17.7 H 15.0 H (4.5-10.0) K/mm3 Hgb 12.7 10.9 L (12.0-15.0) g/dL Hct 38.8 33.1 L (37.0-47.0) % Plt Count 218 174 (150-375) k/mm3 [facility] 03/20/25 03/21/25 14:20 04:43 Sodium 139 138 Potassium 4.5 3.7 Chloride 102 105 Carbon Dioxide 26 28 BUN 22 H 22 H Creatinine 0.97 0.81 Glucose 149 H 98 Calcium 8.9 8.6 Liver Function 03/20/25 Range/Units 14:20 Total Bilirubin 1.3 (0.2-1.3) mg/dL AST 30 (14-36) U/L ALT 16 (6-35) U/L Alkaline Phosphatase 83 (38-126) U/L Albumin 4.1 (3.5-5.1) g/dL Urine 03/20/25 Range/Units 14:30 Urine Color Dark yellow (Yellow) Urine Appearance Cloudy H (Clear) Urine pH 5.0 (5.0-9.0) Ur Specific [place] 1.014 (1.001-1.035) Urine Protein 1+ H (Negative) mg/dL Urine Glucose (UA) Negative (Negative) mg/dL Assessment and Plan Assessment and plan (1) Urinary tract infection: Code(s): N39.0 - Urinary tract infection, site not specified Status: Acute Assessment and Plan: - UA:Cloudy, 1+ protein, trace ketones, positive nitrate, 1+ bilirubin, 2.0 urobilinogen, 2+ leukocyte esterase, 3-5 RBC, 21-50 WBC 4 +bacteria - UC obtained on 03/20, pending - started on Rocephin (2) Nausea vomiting and diarrhea: Code(s): R11.2 - Nausea with vomiting, unspecified; R19.7 - Diarrhea, unspecified Status: Acute Assessment and Plan: * Abdomen/pelvis CT: Bladder wall thickening, as can be seen with cystitis. Correlate with urinalysis. * Stool collected, negative for C diff, Shiga Toxins, Campylobacter * LR for IV fluid hydration * PRN symptomatic control * Monitor electrolytes (3) Atrial fibrillation: Code(s): I48.91 - Unspecified atrial fibrillation Status: Chronic Assessment and Plan: * Chronic * Continue Apixiban 5mg BID (4) Essential hypertension: Code(s): I10 - Essential (primary) hypertension Status: Acute Assessment and Plan: * Patient's blood pressure was reviewed on 03/21 * Blood pressure remains well controlled * Will continue current medications * 115/64 (5) Generalized anxiety disorder: Code(s): F41.1 - Generalized anxiety disorder Status: Acute Assessment and Plan: * Continue Hydroxizine (6) Alzheimer's dementia with agitation: Qualifiers: Alzheimer's disease onset: early onset Dementia severity: moderate Qualified Code(s): G30.0 - Alzheimer's disease with early onset; F02.B11 - Dementia in other diseases classified elsewhere, moderate, with agitation Code(s): G30.9 - Alzheimer's disease, unspecified; F02.811 - Dementia in other diseases classified elsewhere, unspecified severity, with agitation Status: Acute Assessment and Plan: * Continue Memantine Quality VTE Prophylaxis VTE prophylaxis: pharmacologic ordered
[2025-03-21 08:45] VITALS: PULSE 88
[2025-03-21] MEDS: METOPROLOL TARTRATE 25 MG TABLET PO (08:45)
[2025-03-21] MEDS: NIFEdipine 30 MG TAB.ER.24 PO (08:45)
[2025-03-21 08:46] VITALS: RESP 18; O2SAT 99
[2025-03-21] MEDS: APIXABAN 5 MG TABLET PO (08:46)
[2025-03-21] MEDS: lisinopriL 5 MG TABLET PO (08:46)
[2025-03-21] MEDS: MEMANTINE 5 MG TABLET PO (08:46)
[2025-03-21] MEDS: hydrOXYzine HCL 10 MG TABLET PO ×2 (08:46→16:13)
[2025-03-21] MEDS: TIZANIDINE HCL 4 MG TABLET PO (08:46)
[2025-03-21] MEDS: FAMOTIDINE 20 MG TABLET PO (08:47)
[2025-03-21] MEDS: ACETAMINOPHEN 500 MG TABLET PO ×2 (08:50→16:13)
[2025-03-21] MEDS: DIVALPROEX SODIUM DR 250 MG TABEC PO (08:50)
[2025-03-21 13:43] VITALS: BMI 27.8
[2025-03-21 14:00] VITALS: BP 118/52; PULSE 66; RESP 14; O2SAT 100
[2025-03-21 20:00] VITALS: PULSE 50; RESP 20; O2SAT 91
[2025-03-21 20:43] VITALS: PULSE 50; RESP 20; O2SAT 91
[2025-03-22] MEDS: TIZANIDINE HCL 4 MG TABLET PO (03:13)
--- NOTE | 2025-03-22 07:00 | P.PNIM_ITS ---
Progress Note: A&P Assessment and Plan (1) Urinary tract infection: Code(s): N39.0 - Urinary tract infection, site not specified Status: Acute Assessment and Plan: - UA:Cloudy, 1+ protein, trace ketones, positive nitrate, 1+ bilirubin, 2.0 urobilinogen, 2+ leukocyte esterase, 3-5 RBC, 21-50 WBC 4 +bacteria - UC obtained on 03/20, pending - started on Rocephin (2) Nausea vomiting and diarrhea: Code(s): R11.2 - Nausea with vomiting, unspecified; R19.7 - Diarrhea, unspecified Status: Acute Assessment and Plan: * Abdomen/pelvis CT: Bladder wall thickening, as can be seen with cystitis. Correlate with urinalysis. * Stool collected, negative for C diff, Shiga Toxins, Campylobacter * LR for IV fluid hydration * PRN symptomatic control * Monitor electrolytes (3) Atrial fibrillation: Code(s): I48.91 - Unspecified atrial fibrillation Status: Chronic Assessment and Plan: * Chronic * Continue Apixiban 5mg BID (4) Essential hypertension: Code(s): I10 - Essential (primary) hypertension Status: Acute Assessment and Plan: * Patient's blood pressure was reviewed on 03/21 * Blood pressure remains well controlled * Will continue current medications * 115/64 (5) Generalized anxiety disorder: Code(s): F41.1 - Generalized anxiety disorder Status: Acute Assessment and Plan: * Continue Hydroxizine (6) Alzheimer's dementia with agitation: Qualifiers: Alzheimer's disease onset: early onset Dementia severity: moderate Qualified Code(s): G30.0 - Alzheimer's disease with early onset; F02.B11 - Dementia in other diseases classified elsewhere, moderate, with agitation Code(s): G30.9 - Alzheimer's disease, unspecified; F02.811 - Dementia in other diseases classified elsewhere, unspecified severity, with agitation Status: Acute Assessment and Plan: * Continue Memantine Subjective Date/time seen: 03/22/25 07:00 Interval history: The patient is a 79-year-old female with a past medical history of dementia with baseline of A&Ox1, generalized anxiety disorder, atrial fibrillation who presents to the hospital for nausea, vomiting, and diarrhea. Review of Systems Review of Systems: All systems reviewed & are unremarkable except as noted in HPI and below Exam Narrative: Gen - Chronically ill appearing female in no acute respiratory distress who is nontoxic-appearing lying semi recumbent in bed HEENT - normocephalic. Atraumatic. Pupils equal round and reactive. Extraocular motions intact. Sclera clear and anicteric. Oropharynx was clear. Dry mucous membranes. Tongue was midline. No facial asymmetry. Neck - neck was supple. No dominant adenopathy, thyromegaly or masses. Chest - lungs are clear to auscultation bilaterally. No wheezes or crackles. CV - heart was regular rate and rhythm. S1-S2. No murmurs gallops or rubs. Abd - abdomen was soft. Nontender. Nondistended. Positive bowel sounds. Ext - no clubbing, cyanosis or edema. 2+ DP pulses bilaterally. Neuro - patient is alert and oriented x1. Cranial nerves 2-12 are intact. Speech is clear. Psych - normal mood and affect. Patient is pleasant and cooperative. Skin - warm and dry. No rashes noted. Objective Data Vital Signs Vital Signs: Vital Signs - 24 hr 03/21/25 08:45 03/21/25 08:46 03/21/25 14:00 Pulse Rate 88 66 Respiratory Rate 18 14 Blood Pressure 118/52 L Pulse Oximetry 99 100 Oxygen Delivery Room Air Fraction of Inspired Oxygen 03/21/25 20:00 03/21/25 20:43 Pulse Rate 50 L 50 L Respiratory Rate 20 20 Blood Pressure Pulse Oximetry 91 91 Oxygen Delivery Room Air Room Air Fraction of Inspired Oxygen 21 21 Intake/Output Intake/Output: Intake & Output 03/19/25 03/20/25 03/21/25 03/22/25 23:59 23:59 23:59 23:59 Intake Total 1050 2410 120 Output Total 75 250 Balance 975 2160 120 Meds/Results Medications: Active Medications Generic Name Dose Route Start Last Admin Trade Name Freq PRN Reason Stop Dose Admin Acetaminophen 500 mg 03/21/25 09:00 03/21/25 16:13 Acetaminophen 500 Mg Tablet PO 500 mg BID KRISSY Administration Apixaban 5 mg 03/21/25 09:00 03/21/25 20:58 Apixaban 5 Mg Tablet PO Not Given Q12HR KRISSY Divalproex Sodium 250 mg 03/21/25 09:00 03/21/25 20:[address] 250 Mg Tabec PO Not Given Q12HR KRISSY Divalproex Sodium 125 mg 03/21/25 21:00 03/21/25 20:[address] 125 Mg Tabec PO Not Given HS KRISSY Ergocalciferol 50,000 units 03/26/25 09:00 Ergocalciferol 50,000 Units Capsule PO WEEKLY KRISSY Famotidine 20 mg 03/21/25 09:00 03/21/25 08:47 Famotidine 20 Mg Tablet PO 20 mg DAILY KRISSY Administration Hydroxyzine HCl 10 mg 03/21/25 09:00 03/21/25 16:13 Hydroxyzine Hcl 10 Mg Tablet PO 10 mg BID KRISSY Administration Ceftriaxone Sodium 1 gm in 50 mls @ 100 mls/hr 03/21/25 18:00 03/21/25 17:55 Rocephin 1 Gm/Ns 50 Ml IVPB Infused Q24H KRISSY Infusion Lisinopril 5 mg 03/21/25 09:00 03/21/25 08:46 Lisinopril 5 Mg Tablet PO 5 mg DAILY KRISSY Administration Memantine 5 mg 03/21/25 09:00 03/21/25 21:00 Memantine 5 Mg Tablet PO Not Given Q12HR [facility] Metoprolol Tartrate 25 mg 03/21/25 09:00 03/21/25 21:00 Metoprolol Tartrate 25 Mg Tablet PO Not Given Q12HR [facility] Miscellaneous Information 1 each 03/21/25 00:01 03/22/25 04:26 Fluoxetine 20 Mg/5 Ml (4 Mg/Ml) Solution Is Nonformulary, Can Patient Bring From Home? XX 04/20/25 00:00 Not Given CLARIFY KRISSY Nifedipine 30 mg 03/21/25 09:00 03/21/25 21:00 Nifedipine 30 Mg Tab.Er.24 PO Not Given Q12HR [facility] Nonformulary Drug ( 4 each 03/21/25 09:00 Fluoxetine 20 Mg/5ml PO 04/20/25 08:59 (4mg/Ml) Solution) DAILY [facility] Tizanidine HCl 4 mg 03/20/25 23:46 03/22/25 03:13 Tizanidine Hcl 4 Mg Tablet PO 4 mg BID PRN Administration muscle spasticity Radiology Results: ITS Impressions Abdomen/Pelvis CT 03/20/25 18:52 IMPRESSION: Bladder wall thickening, as can be seen with cystitis. Correlate with urinalysis. Quality VTE Prophylaxis VTE prophylaxis: pharmacologic ordered
[2025-03-22 07:28] LABS: Basophils Percent Auto 0.3 % (0.2-1.2); Eosinophils Absolute Auto 0.1 K/mm3 (0-0.3); Eosinophils Percent Auto 0.5 % (0-4.4); Hematocrit 30.9 % (37.0-47.0); Hemoglobin 9.8 g/dL (12.0-15.0); Immature Granulocyte Absolute 0.06 K/mm3 (0.00-0.031); Immature Granulocyte Percent A 0.5 % (0-0.5); Lymphocytes Absolute Auto 2.12 K/mm3 (0.9-3.2); Lymphocytes Percent Auto 16.5 % (18.3-44.2); Mean Corpuscular HGB Conc 31.7 g/dl (32-36); Mean Corpuscular Hemoglobin 32.3 pg (26-34); Mean Platelet Volume 9.9 fl (7.4-10.4); Monocytes Absolute Auto 1.2 K/mm3 (0.1-0.6); Monocytes Percent Auto 9.1 % (2.6-8.5); Neutrophils Absolute Auto 9.4 K/mm3 (1.3-6.7); Neutrophils Percent Auto 73.1 % (45.5-73.1); Platelet Count Result 155 k/mm3 (150-375); Red Blood Count 3.03 M/mm3 (4.2-5.4); Red Cell Distribution Width 13.6 % (11.5-14.5); White Blood Count 12.9 K/mm3 (4.5-10.0)
[2025-03-22 07:43] LABS: Alanine Aminotransferase 12 U/L (6-35); Albumin Level 3.2 g/dL (3.5-5.1); Alkaline Phosphatase 60 U/L (38-126); Anion Gap 5 mmol/L (4-12); Aspartate Amino Transferase 25 U/L (14-36); Bilirubin,Total 0.7 mg/dL (0.2-1.3); Blood Urea Nitrogen 21 mg/dL (7-17); Calcium 8.4 mg/dL (8.4-10.2); Carbon Dioxide 29 mmol/L (22-30); Chloride 101 mmol/L (98-107); Estimated CRCL calculation 44 ml/min; Estimated Glomerular Filt Rate > 60; Glucose 102 mg/dL (65-110); Potassium 4.2 mmol/L (3.4-5.0); Sodium 135 mmol/L (137-145)
[2025-03-22 07:51] VITALS: RESP 20; O2SAT 91
--- NOTE | 2025-03-22 10:37 | P.DS_ITS ---
DS: Admitting Diagnosis Discharge Date 03/22/2025 Admitting Diagnosis UTI DS: Discharge Diagnosis Discharge Diagnosis (1) Urinary tract infection: Code(s): N39.0 - Urinary tract infection, site not specified Status: Acute (2) Nausea vomiting and diarrhea: Code(s): R11.2 - Nausea with vomiting, unspecified; R19.7 - Diarrhea, unspecified Status: Acute (3) Atrial fibrillation: Code(s): I48.91 - Unspecified atrial fibrillation Status: Chronic (4) Essential hypertension: Code(s): I10 - Essential (primary) hypertension Status: Acute (5) Generalized anxiety disorder: Code(s): F41.1 - Generalized anxiety disorder Status: Acute (6) Alzheimer's dementia with agitation: Qualifiers: Alzheimer's disease onset: early onset Dementia severity: moderate Qualified Code(s): G30.0 - Alzheimer's disease with early onset; F02.B11 - Dementia in other diseases classified elsewhere, moderate, with agitation Code(s): G30.9 - Alzheimer's disease, unspecified; F02.811 - Dementia in other diseases classified elsewhere, unspecified severity, with agitation Status: Acute DS: Summary Hospital Course Reason for hospitalization: nausea/vomiting Hospital Course: The patient is a 79-year-old female with a past medical history of dementia with baseline of A&Ox1, generalized anxiety disorder, atrial fibrillation who presents to the hospital for nausea, vomiting, and diarrhea. Patient coming from halfway. Patient was having a bowel movement and was discovered to have low pulse ox. AMS was called and upon arrival to ED, the patient was found to have adequate O2 saturation. She is alert and oriented to self only, which is patient's baseline. Urinalysis was performed which showed evidence of urinary tract infection. Will admit for IV antibiotics and management of nausea/vomiting/diarrhea. In ED: 115/64, 99% on RA, 88HR, 18 RR WBC 17.7, RBC 3.9, HGB 12.7, HCT 38.8, BUN 22, estimated GFR 56, CMP otherwise unremarkable. UA: Cloudy, 1+ protein, trace ketones, positive nitrate, 1+ bilirubin, 2.0 urobilinogen, 2+ leukocyte esterase, 3-5 RBC, 21-50 WBC 4 +bacteria. Urine culture obtained, pending at this time Stool collected, negative for C diff, Shiga Toxins, Campylobacter Abdomen/pelvis CT: Bladder wall thickening, as can be seen with cystitis. Correlate with urinalysis. Given likely urinalysis in the UTI coupled with CT abdomen/pelvis findings, we will treat the patient for uncomplicated urinary tract infection with Rocephin. Urine culture came back with growth of Gram-negative bacilli. Cultures still pending at this time, we will switch patient to p.o. Augmentin firm. Treatment of UTI. The patient is in our x1 at baseline, but she has not had any episodes of diarrhea or vomiting since arrival to hospital. Patient has been observed in bed sleeping abdomen without any complaints. Physical exam has been unremarkable. Patient was found with leukocytosis upon admission to ED with a WBC of 17.7, but this has decreased to 12.9. CMP otherwise unremarkable for any gross changes. Given patient's hemodynamic stability, with stable vital signs and blood work, patient can be safely discharged back to nursing facility at this time. She will be maintained on Augmentin for 5 more days. Plan for discharge back to nursing facility at this time. Status at Discharge Functional status at discharge: bed bound Overall status at discharge: patient is progressing back to baseline Time Spent with Patient Time attestation: Total time spent providing and/or coordinating discharge services: 30 Exam Narrative: Gen - Chronically ill appearing female in no acute respiratory distress who is nontoxic-appearing lying semi recumbent in bed HEENT - normocephalic. Atraumatic. Pupils equal round and reactive. Extraocular motions intact. Sclera clear and anicteric. Oropharynx was clear. Dry mucous membranes. Tongue was midline. No facial asymmetry. Neck - neck was supple. No dominant adenopathy, thyromegaly or masses. Chest - lungs are clear to auscultation bilaterally. No wheezes or crackles. CV - heart was regular rate and rhythm. S1-S2. No murmurs gallops or rubs. Abd - abdomen was soft. Nontender. Nondistended. Positive bowel sounds. Ext - no clubbing, cyanosis or edema. 2+ DP pulses bilaterally. Neuro - patient is alert and oriented x1. Cranial nerves 2-12 are intact. Speech is clear. Psych - normal mood and affect. Patient is pleasant and cooperative. Skin - warm and dry. No rashes noted. DS: Data Data Completed and Pending Labs on day of discharge: Labs from last 24 hours 03/22/25 07:14 WBC 12.9 H RBC 3.03 L Hgb 9.8 L Hct 30.9 L MCV 102.0 H MCH 32.3 MCHC 31.7 L RDW 13.6 Plt Count 155 MPV 9.9 Immature Gran % (Auto) 0.5 Neut % (Auto) 73.1 Lymph % (Auto) 16.5 L [place] % (Auto) 9.1 H Eos % (Auto) 0.5 Baso % (Auto) 0.3 Lymph # (Auto) 2.12 [place] # (Auto) 1.2 H Eos # (Auto) 0.1 Baso # (Auto) 0.0 Abs Immat Gran (auto) 0.06 H Absolute Neuts (auto) 9.4 H Absolute Nucleated RBC 0.000 Nucleated RBC % 0.0 Sodium 135 L Potassium 4.2 Chloride 101 Carbon Dioxide 29 Anion Gap 5 BUN 21 H Creatinine 0.80 Estim Creat Clear Calc 44 Estimated GFR > 60 Glucose 102 Calcium 8.4 Total Bilirubin 0.7 AST 25 ALT 12 Alkaline Phosphatase 60 Total Protein 6.0 L Albumin 3.2 L Preliminary micro results at discharge 03/20/25 14:30 Urine Culture Reflexed - Preliminary Urine Catheterized Gram negative bacilli isolated Discharge Plan Discharge Attending physician on discharge: Garo Ellison Discharging Clinician: Galo Loja Anticipated Discharge Date/Time: 03/22/25 10:12 Patient Disposition: [facility] Activity: as tolerated Diet: as tolerated Discharge Instructions: Take all medications as prescribed even if feeling better. You will be p rescribed Augmentin for 5 total days. Eat well balanced meals and stay hydrated Keep active to remain strong Avoid use of diapers or pads Good ramona Care every 2 hours Trend urine output If you should experience any chest pain, shortness of breath, temps >100.4 or any other worrisome symptoms please follow up with your PCP come back to the hospital Follow up with your primary in 2-3 weeks It has been a pleasure taking care of you thank you for using our services Patient Instructions: Antibiotic Form, Apixaban (By mouth) Patient Language: [place]az[place] Stand Alone Forms: General Discharge Information Follow-up/Referrals: Coty,Markel Yadav DO [Primary Care Provider] - Discharge Medications: New amoxicillin-pot clavulanate 875-125 mg tablet 1 tablet PO Q12H 5 Days Qty: 10 0RF Continued divalproex 250 mg tablet,delayed release (DR/EC) 250 mg PO BID acetaminophen 500 mg tablet 500 mg PO BID famotidine 20 mg tablet 20 mg PO DAILY lisinopril 5 mg tablet 5 mg PO DAILY metoprolol tartrate 25 mg tablet 25 mg PO BID Eliquis 5 mg tablet 5 mg PO BID divalproex 125 mg tablet,delayed release (DR/EC) 125 mg PO HS fluoxetine 20 mg/5 mL (4 mg/mL) solution 4 mg PO DAILY hydroxyzine HCl 10 mg/5 mL solution 10 mg PO BID memantine 5 mg tablet 5 mg PO BID nifedipine 30 mg tablet extended release 24hr 30 mg PO BID tizanidine 4 mg tablet 4 mg PO BID PRN (Reason: muscle spasticity) Belsomra 10 mg tablet 10 mg PO HS cholecalciferol (vitamin D3) 1,250 mcg (50,000 unit) capsule 1,250 mcg PO WEEKLY Rx Instructions: WEDNESDAY Date of admission: 03/20/25 19:08 Primary Care Provider: Coty,Markel Yadav Admitting Provider: Larry Vasquez Attending physician on admission: Galo Loja Condition: Stable Quality VTE Prophylaxis VTE prophylaxis: pharmacologic ordered
[2025-03-22] MEDS: MEMANTINE 5 MG TABLET PO (11:06)
[2025-03-22] MEDS: ACETAMINOPHEN 500 MG TABLET PO (11:06)
[2025-03-22 11:08] VITALS: PULSE 52
[2025-03-22] MEDS: lisinopriL 5 MG TABLET PO (11:08)
[2025-03-22] MEDS: FAMOTIDINE 20 MG TABLET PO (11:08)
[2025-03-22] MEDS: NIFEdipine 30 MG TAB.ER.24 PO (11:08)
[2025-03-22] MEDS: DIVALPROEX SODIUM DR 250 MG TABEC PO (11:08)
[2025-03-22] MEDS: APIXABAN 5 MG TABLET PO (11:08)
[2025-03-22] MEDS: hydrOXYzine HCL 10 MG TABLET PO (11:09)
[2025-03-22 14:00] VITALS: BP 106/43; PULSE 97; RESP 18; TEMP 36.4; O2SAT 100
[2025-03-22 14:25] VITALS: BP 110/52
== END 2025-03-22 14:55 ==
LOC: ANHED 20:00 → ANH2MED 03-21 02:12 → ANH3MEDSUR 03-23 06:49
PROVIDERS: Student in an Organized Health Care Education/Training Program; Admitting Provider Internal Medicine; Emergency Provider Emergency Medicine; PCP Internal Medicine; Visit Provider Physician Assistant
DX: N39.0 Urinary tract infection, site not specified (principal); R11.2 Nausea with vomiting, unspecified; R19.7 Diarrhea, unspecified; I48.91 Unspecified atrial fibrillation; I10 Essential (primary) hypertension; F41.1 Generalized anxiety disorder; G30.0 Alzheimer's disease with early onset; F02.B11 Dementia in other diseases classified elsewhere, moderate, with agitation; Z79.01 Long term (current) use of anticoagulants; Z79.899 Other long term (current) drug therapy
CPT/HCPCS: 36415; 74176; 80048; 80053; 81001; 83690; 85025; 87045; 87077; 87086; 87186; 87427; 87449; 87493; 96361; 96365; 96375; 99285; A9270; G0378; J0696; J2060; J7120